=== PATIENT | female | born 2000 | race Caucasian/White ===

== ENCOUNTER 2020-04-27 23:59 | Emergency (ER) | payer OTHER, BC ==
[2020-04-28] MEDS ORDERED: Sodium Chloride 0.9% 10 ML Syringe FLUSH PRN (00:23)
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
[2020-04-28 00:49] LABS: CHLORIDE,CL 104 mmol/L (98-107); SODIUM,NA 141 mmol/L (136-145)
[2020-04-28 00:57] LABS: PTT,PARTIAL THROMBOPLSTIN TIME 24.8 SEC (24.5-32.8)
[2020-04-28 01:01] LABS: BARBITURATE SCREEN,URINE NEGATIVE (NEGATIVE); BENZODIAZEPINES SCREEN,URINE NEGATIVE (NEGATIVE); EDDP,URINE SCREEN NEGATIVE (NEGATIVE); TCA SCREEN,URINE NEGATIVE (NEGATIVE); THC SCREEN,URINE 50 NG/ML NEGATIVE (NEGATIVE)
[2020-04-28] MEDS: Lactated Ringers 1,000 ML IV ONE (01:03)
== END 2020-04-28 02:15 | disposition home or self-care (01) ==
LOC: LL.ED 23:59
DX: S20.212A Contusion of left front wall of thorax, initial encounter (principal); V43.62XA Car passenger injured in collision with other type car in traffic accident, initial encounter; Y92.413 State road as the place of occurrence of the external cause
CPT/HCPCS: 36415; 71046; 80053; 80305-QW; 80307; 81001; 82150; 82550; 82553; 83605; 83690; 83735; 84484; 84550; 84703; 85025; 85610; 85730; 87086; 99284-25; J7120